=== PATIENT | female | born 1960 | race American Indian/Alaskan Native ===

== ENCOUNTER 2017-02-17 02:05 | Emergency (ER) | payer SELFPAY ==
[2017-02-17] MEDS ORDERED: NACL 0.9% 1000 ML 1,000 ML IV ONE ×2 (02:27→03:51)
[2017-02-17] MEDS ORDERED: APRESOLINE IV ONE (02:27)
--- NOTE | 2017-02-17 02:31 | Emergency Department Report ---
ED Altered Mental Status HPI - General Stated Complaint: HIGH BLOOD SUGAR Time Seen by Provider: 02/17/17 02:19 Source: EMS Mode of arrival: Stretcher Limitations: Altered Mental Status - History of Present Illness Initial Comments: This is a 56-year-old female brought in by ambulance crew due to altered mental status. According to the story from EMS, the patient was watching TV with family when she apparently alerted family that she felt funny and they noted her to be slumping over in the chair. She became unresponsive for family. She did continue to have some spontaneous respirations. Family called EMS. EMS found patient to have pinpoint pupils and no respiratory distress. Narcan was given. EMS crew did feel that there was some response to Narcan. Patient was ultimately brought here for further evaluation. Her sugars were noted to be quite elevated when checked by EMS crew. Patient continues to be unresponsive here in ED caveat is taken for the rest of HPI as well as review of systems past medical history. - Related Data Previous Rx's Medication Instructions Recorded Last Taken Type AtorvaSTATin [Lipitor] 20 mg PO DAILY #30 tablet 02/17/17 Unknown Rx Insulin Detemir [Levemir Flextouch] 10 unit SQ QHS #3 insuln.pen 02/17/17 Unknown Rx amLODIPine [Norvasc] 10 mg PO DAILY #30 tab 02/17/17 Unknown Rx metFORMIN [Glucophage] 500 mg PO BID #60 tablet 02/17/17 Unknown Rx Allergies Allergy/AdvReac Type Severity Reaction Status Date / Time Unable to Assess Allergy Verified 02/17/17 02:26 ED Review of Systems ROS: Stated complaint: HIGH BLOOD SUGAR Other details as noted in HPI Comment: Unobtainable due to pts medical conditions ED Past Medical Hx - Past Medical History Previous Medical History?: Yes Hx Diabetes: Yes - Surgical History Additional Surgical History: UNABLE TO OBTAIN - Social History Smoking Status: Unknown if ever smoked - Medications Home Medications: Home Medications Medication Instructions Recorded Confirmed Last Taken Type AtorvaSTATin [Lipitor] 20 mg PO DAILY #30 tablet 02/17/17 Unknown Rx Insulin Detemir [Levemir Flextouch] 10 unit SQ QHS #3 insuln.pen 02/17/17 Unknown Rx amLODIPine [Norvasc] 10 mg PO DAILY #30 tab 02/17/17 Unknown Rx metFORMIN [Glucophage] 500 mg PO BID #60 tablet 02/17/17 Unknown Rx ED Physical Exam - General Limitations: Altered Mental Status General appearance: obtunded - Head Head exam: Present: atraumatic, normocephalic - Eye Eye exam: Present: other (2 mm pinpoint pupils bilaterally with no reactivity. She does have some reaction to movement.) - ENT ENT exam: Present: normal orophraynx, mucous membranes moist - Neck Neck exam: Present: other (no carotid bruit noted). Absent: lymphadenopathy - Respiratory Respiratory exam: Present: normal lung sounds bilaterally. Absent: wheezes, rales, rhonchi - Cardiovascular Cardiovascular Exam: Present: regular rate, normal rhythm - GI/Abdominal GI/Abdominal exam: Present: soft, normal bowel sounds. Absent: distended, rebound - Extremities Exam Extremities exam: Present: other (equal distal pedal pulses and distal radial pulses bilaterally.). Absent: pedal edema - Back Exam Back exam: Present: other (no bony step-off noted. No abrasions or lesions noted.) - Neurological Exam Neurological exam: Present: other (essentially unresponsive. She does arouse to deep stimulus such as sternal rub and IV stick. She does have downward Babinski bilaterally. She does move move both extremities and the upper towards painful stimuli. She is very sluggish to all her responses however.) - Skin Skin exam: Present: warm, dry, intact ED Course Vital Signs 02/17/17 02/17/17 02/17/17 02:19 02:29 02:30 Temperature 98.6 F Pulse Rate 88 87 85 Respiratory 16 20 19 Rate Blood Pressure Blood Pressure [Right] O2 Sat by Pulse 98 98 98 Oximetry 02/17/17 02/17/17 02/17/17 02:33 02:40 02:49 Temperature Pulse Rate 91 H 98 H Respiratory 18 Rate Blood Pressure 142/77 Blood Pressure 205/113 [Right] O2 Sat by Pulse 97 Oximetry 02/17/17 02/17/17 02/17/17 02:50 03:00 03:10 Temperature Pulse Rate 103 H 102 H 94 H Respiratory 19 25 H 24 Rate Blood Pressure 142/77 115/56 107/56 Blood Pressure [Right] O2 Sat by Pulse 99 96 Oximetry 02/17/17 02/17/17 02/17/17 03:20 03:30 03:40 Temperature Pulse Rate 102 H 105 H 112 H Respiratory 35 H 25 H 21 Rate Blood Pressure 100/58 119/65 126/81 Blood Pressure [Right] O2 Sat by Pulse 99 99 99 Oximetry 02/17/17 02/17/17 03:50 04:42 Temperature Pulse Rate 110 H 109 H Respiratory 17 16 Rate Blood Pressure 150/72 150/72 Blood Pressure [Right] O2 Sat by Pulse 98 98 Oximetry - Reevaluation(s) Reevaluation #1: 02/17/17 02:31 ECG at O2 25 with sinus rhythm at 93 bpm with a normal ID and QRS. Normal axis is noted as well. Otherwise unremarkable ECG here. Reevaluation #2: 02/17/17 05:11 CT brain demonstrates normal study. Labs are noted. Lactate is somewhat elevated however the lab did indicate that there was hemolysis in the specimen. In addition the lab studies U demonstrated sugar elevated at 455. Her CO2 is 19 with a venous pH is 7.29. Further information from family indicates that the patient has not been on her insulin or metformin for approximately one month. Had a very hard time suspecting this hyperglycemia is acute in nature. Other labs electrolytes studies are noted as well and are unremarkable. ECG does not demonstrate anything specific either. Blood pressure was initially elevated when she arrived here. I did give hydralazine for this. Patient indicates she has not been on her blood pressure medication for a month or so as well. She is noted to have an elevated alcohol at 0.130 twice the legal limit. Family indicates the patient does drink regularly but not habitually and they would not classify her as alcoholic. The patient is now awake for me and responsive to some degree. She is kind of odd in her demeanor. She demonstrates an inability to be able to communicate by mouth. She lives the words and sometimes makes and soft sounds but otherwise is fine 20 lip smacking and sticking out her tongue without saying specific words. She does appear to understand very well over saying however. My gestalt is this is intact. I don't know a secondary gain is. I do have some suspicion if there was really some significant acting going on throughout this whole process. This is difficult to prove obviously and my job is air on the side of caution. For that reason I have given the patient suggestion and requests that she be admitted to the hospital. This point she is refusing. C for another half hour and see if I can compel her to stay in the hospital. 02/17/17 05:12 Reevaluation #3: 02/17/17 06:29 What a bizarre case. Patient does suddenly gain the ability to speak without any difficulty whatsoever and quite clearly as well. She is able to explain clearly the events of the evening. She indicates that she had a bloody nose. She reports while she was sitting in the bed she got panicky because of the blood she saw from coming from her nose and passed out. THis is when Family found her and called EMS. From a syncope standpoint this is reassuring as I doubt cardiac etiology to the syncopal episode. I did give her off option for admission. She is unwilling to do this. She is requesting to go home at this time. I did write for refills on her medications and she's been out of her blood pressure and diabetic medications. She does state that she has a physician to follow up with. She has several family members who are with her at the bedside at this time. They also live with her at home. They agree to watch her today. Patient does acknowledge that she has been poorly compliant on her diabetic diet. I did strongly encourage this. Neurologically she is appropriate at this time. She is speaking very clearly. She is moving all extremities without difficulty. She denies any pains at this time. Safe for home - Lab Data Result diagrams: 02/17/17 02:38 02/17/17 02:38 Lab Results 02/17/17 02/17/17 02/17/17 Range/Units 02:38 02:38 02:38 WBC 5.9 (4.5-11.0) K/mm3 RBC 4.14 (3.65-5.03) M/mm3 Hgb 13.8 (10.1-14.3) gm/dl Hct 40.9 (30.3-42.9) % MCV 99 H (79-97) fl MCH 33 H (28-32) pg MCHC 34 (30-34) % RDW 13.1 L (13.2-15.2) % Plt Count 172 (140-440) K/mm3 Lymph % (Auto) 43.6 H (13.4-35.0) % [place] % (Auto) 8.3 H (0.0-7.3) % Eos % (Auto) 1.7 (0.0-4.3) % Baso % (Auto) 0.7 (0.0-1.8) % Lymph # 2.6 (1.2-5.4) K/mm3 [place] # 0.5 (0.0-0.8) K/mm3 Eos # 0.1 (0.0-0.4) K/mm3 Baso # 0.0 (0.0-0.1) K/mm3 Seg Neutrophils % 45.7 (40.0-70.0) % Seg Neutrophils # 2.7 (1.8-7.7) K/mm3 PT (12.2-14.9) Sec. INR (0.87-1.13) APTT (24.2-36.6) Sec. VBG pH 7.294 L (7.320-7.420) Sodium (137-145) mmol/L Potassium (3.6-5.0) mmol/L Chloride (98-107) mmol/L Carbon Dioxide (22-30) mmol/L Anion Gap mmol/L BUN (7-17) mg/dL Creatinine (0.7-1.2) mg/dL Estimated GFR ml/min BUN/Creatinine Ratio % Glucose (65-100) mg/dL Lactic Acid 4.9 H* (0.7-2.0) mmol/L Calcium (8.4-10.2) mg/dL Total Bilirubin (0.1-1.2) mg/dL AST (5-40) units/L ALT (7-56) units/L Alkaline Phosphatase (35-129) units/L Troponin T (0.00-0.029) ng/mL Total Protein (6.3-8.2) g/dL Albumin (3.9-5) g/dL Albumin/Globulin Ratio % Plasma/Serum Alcohol (0-0.07) gm% 02/17/17 02/17/17 02/17/17 Range/Units 02:38 02:38 02:38 WBC (4.5-11.0) K/mm3 RBC (3.65-5.03) M/mm3 Hgb (10.1-14.3) gm/dl Hct (30.3-42.9) % MCV (79-97) fl MCH (28-32) pg MCHC (30-34) % RDW (13.2-15.2) % Plt Count (140-440) K/mm3 Lymph % (Auto) (13.4-35.0) % [place] % (Auto) (0.0-7.3) % Eos % (Auto) (0.0-4.3) % Baso % (Auto) (0.0-1.8) % Lymph # (1.2-5.4) K/mm3 [place] # (0.0-0.8) K/mm3 Eos # (0.0-0.4) K/mm3 Baso # (0.0-0.1) K/mm3 Seg Neutrophils % (40.0-70.0) % Seg Neutrophils # (1.8-7.7) K/mm3 PT 13.2 (12.2-14.9) Sec. INR 1.01 (0.87-1.13) APTT 25.0 (24.2-36.6) Sec. VBG pH (7.320-7.420) Sodium 137 (137-145) mmol/L Potassium 4.0 (3.6-5.0) mmol/L Chloride 96.4 L (98-107) mmol/L Carbon Dioxide 19 L (22-30) mmol/L Anion Gap 26 mmol/L BUN 16 (7-17) mg/dL Creatinine 0.6 L (0.7-1.2) mg/dL Estimated GFR > 60 ml/min BUN/Creatinine Ratio 26.66 % Glucose 455 H (65-100) mg/dL Lactic Acid (0.7-2.0) mmol/L Calcium 8.9 (8.4-10.2) mg/dL Total Bilirubin 0.3 (0.1-1.2) mg/dL AST 36 (5-40) units/L ALT 28 (7-56) units/L Alkaline Phosphatase 121 (35-129) units/L Troponin T < 0.010 (0.00-0.029) ng/mL Total Protein 7.7 (6.3-8.2) g/dL Albumin 3.7 L (3.9-5) g/dL Albumin/Globulin Ratio 0.9 % Plasma/Serum Alcohol 0.13 H (0-0.07) gm% Critical care attestation.: If time is entered above; I have spent that time in minutes in the direct care of this critically ill patient, excluding procedure time. ED Disposition Clinical Impression: Hyperglycemia Hypertension Qualifiers: Hypertension type: essential hypertension Qualified Code(s): I10 - Essential ( primary) hypertension Syncope Qualifiers: Syncope type: vasovagal syncope Qualified Code(s): R55 - Syncope and collapse Disposition: DISCHARGED TO HOME OR SELFCARE Is pt being admited?: No Does the pt Need Aspirin: No Condition: Stable Instructions: Syncope (ED) Additional Instructions: Take your medications as prescribed. Check your sugars regularly. Follow a diabetic diet. Prescriptions: Insulin Detemir [Levemir Flextouch] 10 unit SQ QHS #3 insuln.pen amLODIPine [Norvasc] 10 mg PO DAILY #30 tab AtorvaSTATin [Lipitor] 20 mg PO DAILY #30 tablet metFORMIN [Glucophage] 500 mg PO BID #60 tablet Referrals: [facility] [Provider Group] - 3-5 Days Time of Disposition: 06:23
[2017-02-17 02:53] LABS: Basophils % (Auto) 0.7 % (0.0-1.8); Eosinophils % (Auto) 1.7 % (0.0-4.3); Hematocrit 40.9 % (30.3-42.9); Hemoglobin 13.8 gm/dl (10.1-14.3); Mean Corpuscular HGB Conc 34 % (30-34); Mean Corpuscular Hemoglobin 33 pg (28-32); Mean Corpuscular Volume 99 fl (79-97); Platelet Count 172 K/mm3 (140-440); Red Blood Count 4.14 M/mm3 (3.65-5.03); Red Cell Distribution Width 13.1 % (13.2-15.2); White Blood Count 5.9 K/mm3 (4.5-11.0)
[2017-02-17 03:03] LABS: INR 1.01 (0.87-1.13)
[2017-02-17 03:17] LABS: Alanine Aminotransferase 28 units/L (7-56); Albumin 3.7 g/dL (3.9-5); Albumin/Globulin Ratio 0.9 %; Alkaline Phosphatase 121 units/L (35-129); Anion Gap 26 mmol/L; BUN/Creatinine Ratio 26.66; Bilirubin,Total 0.3 mg/dL (0.1-1.2); Blood Urea Nitrogen 16 mg/dL (7-17); Calcium 8.9 mg/dL (8.4-10.2); Carbon Dioxide 19 mmol/L (22-30); Chloride 96.4 mmol/L (98-107); Glucose 455 mg/dL (65-100); Sodium 137 mmol/L (137-145); Total Protein 7.7 g/dL (6.3-8.2)
--- NOTE | 2017-02-17 04:45 | Cat Scan Report ---
FINAL REPORT EXAM: CT HEAD/BRAIN WO CON HISTORY: ams TECHNIQUE: CT of the head was performed. No intravenous contrast was administered. PRIORS: None. FINDINGS: There is no evidence of intracranial hemorrhage. There is no edema, mass effect or midline shift. There are no abnormal extra-axial fluid collections. The ventricles are appropriate for brain volume. There is no skull fracture seen. There is ethmoid sinus mucosal thickening. IMPRESSION: There is no acute intracranial abnormality identified.
[2017-02-17 04:52] VITALS: BP 150/72
== END 2017-02-17 06:38 | disposition home or self-care (01) ==
LOC: ED 02:05
DX: R55 Syncope and collapse (principal); I10 Essential (primary) hypertension; E11.65 Type 2 diabetes mellitus with hyperglycemia
CPT/HCPCS: 36415; 70450; 80053; 82010; 82140; 82805; 82962; 84484; 85025; 85610; 85730; 93005; 93010; 96361; 96372; 96374; 99284; G0480; J0360; J7030; 80320; J1815

== ENCOUNTER 2017-06-22 21:51 | Emergency (ER) | payer SELFPAY | END 2017-06-22 22:18 | disposition left against medical advice (07) | LOC: ED 21:51 | DX: H57.11 Ocular pain, right eye (principal); Z53.21 Procedure and treatment not carried out due to patient leaving prior to being seen by health care provider ==